=== PATIENT | male | born 1965 ===

== ENCOUNTER 2021-11-18 00:44 | Inpatient (IN) ==
--- NOTE | 2021-11-18 11:23 | Internal Med History&Physical ---
HPI History of Present Illness Patient information: Note initiated : 11/18/21 at 11:12 am Service Date, if different from initiated Date: [] Patient: Joshua Woods a 55 y/o M admitted on 11/18/21 for Osteomyelitis. Chief Complaint: [] Chief complaint: left ankle wound with pain History of present illness: Mr. Woods is a 55 year old M history of type 2 diabetes mellitus, presenting with 6 weeks history of swelling, pain, and skin breakdown of his left medial malleolus. There was no prior similar data. Patient had an injury by welding about 6 weeks ago to his left medial ankle. Since then, his left medial ankle w ound has been getting worse in terms of erythema, skin breakdown, swelling, pain. The pain currently is graded at 4 out of 10, deep and dull, intermittent, nonradiating. He denies any systemic symptoms such as fever, chills, diaphoresis, change in appetite, general body weakness. He presented to outside hospital who sent him over to our facility for orthopedic surgery care. Vital signs significant for low-grade fever with T-max 37.8. Labs significant for leukocytosis with WBC 15.6. Blood sugar 303. Corrected serum sodium level 122. Lactic acid 0.8. C-reactive protein elevated to 19.9. MRI of the left ankle showing left medial malleolus osteomyelitis. Constitutional Constitutional: Absent chills, excessive sweating, fatigue, fever(s) or weakness EENT Eyes: Absent blurry vision, change in vision, loss of vision or other visual disturbances Ears: Absent decreased hearing or tinnitus Nose, mouth and throat: Absent abnormal hearing, dry mouth, headache(s), nasal congestion or sore throat Cardiovascular Cardiovascular: Absent chest pain, chest pain at rest, edema, irregular heart rhythm or palpatations Respiratory Respiratory: Absent cough, dyspnea or wheezing Gastrointestinal Gastrointestinal: Absent abdominal pain, constipation, diarrhea, nausea or vomiting Musculoskeletal Musculoskeletal: Present joint swelling, myalgias and other; Absent back pain, deformity, limited range of motion, muscle cramps, muscle weakness or numbness Additional comments: Left medial ankle redness, swelling, pain, warmth Integumentary Integumentary: Absent lesions, rash or wounds Neurological Neurological: Absent focal weakness, headache(s) or numbness Psychiatric Psychiatric: Absent anxiety, depression or hallucinations PFSH PFSH All Active Problems (Updated 11/18/21 @ 11:18 by Hermelindo Hill MD) Anemia, normocytic normochromic (Acute) Hyponatremia (Acute) T2DM (type 2 diabetes mellitus) (Acute) Osteomyelitis of left ankle (Acute) EXAM Constitutional Vitals: Temp Pulse Resp BP Pulse Ox 37.8 C H 86 16 149/84 97 11/18/21 10:46 11/18/21 10:46 11/18/21 10:46 11/18/21 10:46 11/18/21 10:46 General appearance: cooperative and no acute distress Head Head exam: Present atraumatic and normocephalic Eye Eye exam: Present EOMI and PERRL ENT ENT exam: Present mucous membranes moist, normal exam and normal external ear exam Neck Neck exam: Present normal inspection; Absent lymphadenopathy, tenderness or thyromegaly Respiratory Respiratory exam: Absent accessory muscle use, respiratory distress or wheezes Cardiovascular Cardiovascular exam: Present normal rate and rhythm; Absent JVD GI/Abdominal GI/Abdominal exam: Present normal bowel sounds and soft; Absent organomegaly or tenderness Rectal Rectal exam: Present deferred Extremities Exam Extremities exam: Present full ROM, joint swelling, normal capillary refill, tenderness and Foot pink and warm; Absent normal inspection Additional comments: Erythema, warmth, swelling, tenderness to touch of the left medial malleolus with skin break break, with foul smelling Neurological Exam Neurological exam: Present alert, CN II-XII intact and oriented X3; Absent motor sensory deficit Psychiatric Psychiatric exam: Present normal affect and normal mood; Absent anxious or depressed Skin Skin exam: Present dry, erythema and warm; Absent intact Additional comments: Erythema, warmth, swelling, tenderness to touch of the left medial malleolus with skin break break, with foul smelling A/P Assessment and plan (1) Osteomyelitis of left ankle: Status: Acute (2) T2DM (type 2 diabetes mellitus): Status: Acute (3) Hyponatremia: Status: Acute (4) Anemia, normocytic normochromic: Status: Acute Narrative A/P Narrative: Assessment and Plans: 1. Left medial malleolus osteomyelitis: Inpatient med surg Dr. Veliz consulted for surgical management Lactic acid 0.8 CRP 19.9 Procalcitonin Wound culture Intraoperative wound culture Blood culture cbc w/ auto diff in the morning to trend WBC Tylenol PRN fever/mild pain MRSA screening negative-->Zosyn Oxycodone PRN moderate pain Morphine IV PRN severe pain NPO with IV fluid Wound care consult Physical therapy 2. T2DM: HgA1c 12.9 High dose SSI q6hr Accu Chek q6hr Hypoglycemia protocol NPO for now 3. Anemia, normocytic normochromic: cbc w/ auto diff in the morning to trend H/H 4. Hyponatremia: Corrected serum sodium 122 NS@100cc/hr BMP q6hr, goal of correction 10 point/24 hours GI ppx: not currently indicated DVT ppx: SCDs Code status: Full Prognosis: guarded Disposition: inpatient med surg Time Spent With Patient Time: Total time spent is greater than 50% in coordination of care (as documented) at patient's floor/unit and/or counseling patient: Total time spent with greater than 50% in coordination of care (as documented) at patient's floor/unit and/or counseling patient:: 50 - 70 minutes
[2021-11-18] MEDS ORDERED: ACETAMINOPHEN 325 MG TABLET PO PRN (11:48)
[2021-11-18] MEDS ORDERED: DEXTROSE 31 GM ORAL.SUSP PO PRN (11:48)
[2021-11-18] MEDS ORDERED: oxyCODONE HCL 5 MG TABLET PO PRN (11:48)
[2021-11-18] MEDS ORDERED: ZOLPIDEM 5 MG TABLET PO PRN (11:48)
[2021-11-18] MEDS ORDERED: DEXTROSE 50% 50 ML VIAL IV PRN (11:48)
[2021-11-18] MEDS ORDERED: ONDANSETRON 4 MG/2 ML VIAL IV PRN (11:48)
[2021-11-18] MEDS ORDERED: IPRATROPIUM/ALBUTEROL 3 ML AMPUL.NEB NEB PRN (11:48)
[2021-11-18] MEDS ORDERED: morphine 4 MG/ML VIAL IV PRN (11:48)
[2021-11-18] MEDS: 0.9 % SODIUM CHLORIDE 1,000 ML IV SCH (12:19)
[2021-11-18] MEDS: INSULIN LISPRO 1 UNIT/0.01 ML UNIT SQ SCH ×2 (12:27→17:10)
[2021-11-18] MEDS: PIPERACILLIN SODIUM/TAZOBACTAM 3.375 GM in DEXTROSE 5% IN WATER 50 ML IV SCH ×3 (12:32→23:30)
[2021-11-18 13:27] LABS: Blood Urea Nitrogen 7 mg/dL (6-20); Calcium 8.7 mg/dL (8.6-10.4); Carbon Dioxide 20 mmol/L (22-30); Chloride 88 mmol/L (96-108); Glomerular Filtration Rate 98; Glucose 283 mg/dL (70-105)
--- NOTE | 2021-11-18 14:02 | General Surgery Consult Note ---
HPI Data of Consult Consult date: 11/18/21 Requesting physician: Hermelindo Hill Primary Care Provider: Ian Lau Family Provider: CSSSI / Infected full thickness burn LEFT lower medial leg. Symptomatic for >1 month. Failed out patient treatment. LAB RESULTS and IMAGING studies reviewed. 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 [employer]. NON smoker and NON alcoholic. Consult Narrative Patient Information: Note initiated : 11/18/21 at 1:45 pm Service Date, if different from initiated Date: [] Patient: Joshua Woods 55 y/o M admitted on 11/18/21 for Osteomyelitis. Chief Complaint: [] cc:: CC: Hermelindo Hill MD Integumentary Integumentary: Present as per HPI, wounds and other Additional comments: Callosities over tips of toes LEFT foot. Dystrophic ridged fungal and ridged toenails. Neurological Neurological: Present other Additional comments: Diabetes with mainly peripheral / sensory neuropathy Endocrine Additional comments: IDDM. PFSH PFSH All Active Problems Anemia, normocytic normochromic (Acute) Hyponatremia (Acute) T2DM (type 2 diabetes mellitus) (Acute) Osteomyelitis of left ankle (Acute) MEDS/ALLERGIES Home Medications and Allergies Home Medications Medication Instructions Recorded Confirmed Type No Known Home Meds 11/18/21 11/18/21 History Allergies Allergy/AdvReac Type Severity Reaction Status Date / Time No Known Food Allergies Allergy Verified 11/18/21 11:40 Physical Examination Vital Signs Vital signs: Temp Pulse Resp BP Pulse Ox 99.1 F H 86 18 165/83 95 11/18/21 12:00 11/18/21 12:00 11/18/21 12:00 11/18/21 12:00 11/18/21 12:00 Head Head exam IM: Present atraumatic, normal inspection and normocephalic Neck Neck exam: no masses, no lymphadenopathy and no venous distension Cardiovascular Cardiovascular exam IM: Present normal rate and rhythm Respiratory Respiratory exam: normal expansion, normal respiratory effort and clear to auscultation Abdomen Abdomen: Present soft, non tender and bowel sounds Integumentary Integumentary: Present other (Circular full thickness wound (Stage 4, Exposed tendon ) with periwound warmth, edema, erythema, cellulitis purulent draiange. Extends to lower 1/3 leg. 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 ) Neurologic Neurologic: Present other (Perpheral neuropathy, Full range of movements of foot and ankle. ) Musculoskeletal Musculoskeletal: Present other (Acute osteomyelitis of LEFT lwoer medial leg bu rn site ( Medial malleolus ) ) Psychiatric Psychiatric: Present oriented to time, oriented to person, oriented to place, speech is normal and memory intact Results Labs Result diagrams: 11/18/21 12: Labs: Abnormal lab results 11/18/21 11/18/21 11/18/21 Range/Units 12: 12: 12:27 Sodium 123 L (133-145) mmol/L Chloride 88 L (96-108) mmol/L Carbon Dioxide 20 L (22-30) mmol/L Glucose 283 H (70-105) mg/dL Hemoglobin A1c 12.0 H (4.0-6.0) % Hgb Procalcitonin 0.16 H (<0.10) ng/mL Diabetes panel 11/18/21 11/18/21 Range/Units 12: 12:27 Sodium 123 L (133-145) mmol/L Potassium 3.9 (3.3-5.1) mmol/L Chloride 88 L (96-108) mmol/L Carbon Dioxide 20 L (22-30) mmol/L BUN 7 (6-20) mg/dL Creatinine 0.8 (0.7-1.2) mg/dL Glucose 283 H (70-105) mg/dL Hemoglobin A1c 12.0 H (4.0-6.0) % Hgb Calcium 8.7 (8.6-10.4) mg/dL Calcium panel 11/18/21 Range/Units 12:27 Calcium 8.7 (8.6-10.4) mg/dL Pituitary panel 11/18/21 Range/Units 12:27 Sodium 123 L (133-145) mmol/L Potassium 3.9 (3.3-5.1) mmol/L Chloride 88 L (96-108) mmol/L Carbon Dioxide 20 L (22-30) mmol/L BUN 7 (6-20) mg/dL Creatinine 0.8 (0.7-1.2) mg/dL Glucose 283 H (70-105) mg/dL Calcium 8.7 (8.6-10.4) mg/dL Adrenal panel 11/18/21 Range/Units 12:27 Sodium 123 L (133-145) mmol/L Potassium 3.9 (3.3-5.1) mmol/L Chloride 88 L (96-108) mmol/L Carbon Dioxide 20 L (22-30) mmol/L BUN 7 (6-20) mg/dL Creatinine 0.8 (0.7-1.2) mg/dL Glucose 283 H (70-105) mg/dL Calcium 8.7 (8.6-10.4) mg/dL All other labs normal. A/P Time Spent With Patient Time: Assessment: Requested by Dr. Jcarlos KINCAID, to see this patient for wound care. Debridement and ongoing wound management. Chronic sepsis. CSSSI Infected full thickness 3rd degree burn LEFT lower medial leg. Leucocytosis, ELEVATED A1C, CRP, PROCALCITONIN. Onychomycosis IDDM Peripheral neuropathy PLAN: Continue current treatment. IV antibiotics. Will schedule OR surgical debridement and tissue c/s. Further recommendations later. Total time spent is greater than 50% in coordination of care (as documented) at patient's floor/unit and/or counseling patient: Total time spent with greater than 50% in coordination of care (as documented) at patient's floor/unit and/or counseling patient:: 35 - 50 minutes
--- NOTE | 2021-11-18 14:03 | General Surgery Consult Note ---
HPI Data of Consult Primary Care Provider: Ian Lau Consult Narrative Patient Information: Note initiated : 11/18/21 at 2:02 pm Service Date, if different from initiated Date: [] Patient: Joshua Woods 55 y/o M admitted on 11/18/21 for Osteomyelitis. Chief Complaint: [] cc:: CC: Hermelindo Hill MD [facility] PFS All Active Problems Anemia, normocytic normochromic (Acute) Hyponatremia (Acute) T2DM (type 2 diabetes mellitus) (Acute) Osteomyelitis of left ankle (Acute) MEDS/ALLERGIES Home Medications and Allergies Home Medications Medication Instructions Recorded Confirmed Type No Known Home Meds 11/18/21 11/18/21 History Allergies Allergy/AdvReac Type Severity Reaction Status Date / Time No Known Food Allergies Allergy Verified 11/18/21 11:40 Physical Examination Vital Signs Vital signs: Temp Pulse Resp BP Pulse Ox 99.1 F H 86 18 165/83 95 11/18/21 12:00 11/18/21 12:00 11/18/21 12:00 11/18/21 12:00 11/18/21 12:00 Results Labs Result diagrams: 11/18/21 12:27 Labs: Abnormal lab results 11/18/21 11/18/21 11/18/21 Range/Units 12:02 12:26 12:27 Sodium 123 L (133-145) mmol/L Chloride 88 L (96-108) mmol/L Carbon Dioxide 20 L (22-30) mmol/L Glucose 283 H (70-105) mg/dL Hemoglobin A1c 12.0 H (4.0-6.0) % Hgb Procalcitonin 0.16 H (<0.10) ng/mL Diabetes panel 11/18/21 11/18/21 Range/Units 12:26 12:27 Sodium 123 L (133-145) mmol/L Potassium 3.9 (3.3-5.1) mmol/L Chloride 88 L (96-108) mmol/L Carbon Dioxide 20 L (22-30) mmol/L BUN 7 (6-20) mg/dL Creatinine 0.8 (0.7-1.2) mg/dL Glucose 283 H (70-105) mg/dL Hemoglobin A1c 12.0 H (4.0-6.0) % Hgb Calcium 8.7 (8.6-10.4) mg/dL Calcium panel 11/18/21 Range/Units 12:27 Calcium 8.7 (8.6-10.4) mg/dL Pituitary panel 11/18/21 Range/Units 12:27 Sodium 123 L (133-145) mmol/L Potassium 3.9 (3.3-5.1) mmol/L Chloride 88 L (96-108) mmol/L Carbon Dioxide 20 L (22-30) mmol/L BUN 7 (6-20) mg/dL Creatinine 0.8 (0.7-1.2) mg/dL Glucose 283 H (70-105) mg/dL Calcium 8.7 (8.6-10.4) mg/dL Adrenal panel 11/18/21 Range/Units 12:27 Sodium 123 L (133-145) mmol/L Potassium 3.9 (3.3-5.1) mmol/L Chloride 88 L (96-108) mmol/L Carbon Dioxide 20 L (22-30) mmol/L BUN 7 (6-20) mg/dL Creatinine 0.8 (0.7-1.2) mg/dL Glucose 283 H (70-105) mg/dL Calcium 8.7 (8.6-10.4) mg/dL All other labs normal. A/P Time Spent With Patient Time: Total time spent is greater than 50% in coordination of care (as documented) at patient's floor/unit and/or counseling patient:
[2021-11-18] MEDS: 0.9 % SODIUM CHLORIDE 10 ML SYRINGE IV SCH ×2 (14:26→22:03)
[2021-11-18 18:58] LABS: Blood Urea Nitrogen 6 mg/dL (6-20); Calcium 8.5 mg/dL (8.6-10.4); Carbon Dioxide 24 mmol/L (22-30); Chloride 92 mmol/L (96-108); Glomerular Filtration Rate 104; Glucose 162 mg/dL (70-105)
[2021-11-18] MEDS: SENNOSIDES 1 TABLET PO SCH (20:35)
[2021-11-18] MEDS: DOCUSATE SODIUM 100 MG CAPSULE PO SCH (20:35)
[2021-11-19] MEDS: INSULIN LISPRO 1 UNIT/0.01 ML UNIT SQ SCH ×5 (00:40→20:15)
[2021-11-19] MEDS: 0.9 % SODIUM CHLORIDE 1,000 ML IV SCH ×3 (00:41→21:15)
[2021-11-19 02:01] LABS: Blood Urea Nitrogen 5 mg/dL (6-20); Calcium 8.4 mg/dL (8.6-10.4); Carbon Dioxide 28 mmol/L (22-30); Chloride 93 mmol/L (96-108); Glomerular Filtration Rate 98; Glucose 144 mg/dL (70-105)
[2021-11-19] MEDS: PIPERACILLIN SODIUM/TAZOBACTAM 3.375 GM in DEXTROSE 5% IN WATER 50 ML IV SCH ×4 (04:59→23:54)
[2021-11-19] MEDS: 0.9 % SODIUM CHLORIDE 10 ML SYRINGE IV SCH ×4 (04:59→20:15)
[2021-11-19 06:28] LABS: Basophils # (Auto) 0.11 K/mcL (0.00-0.30); Basophils % (Auto) 0.8 % (0.0-2.0); Eosinophils # (Auto) 0.31 K/mcL (0.00-0.70); Eosinophils % (Auto) 2.3 % (0.0-7.0); Hematocrit 28.3 % (40.1-51.0); Hemoglobin 9.4 g/dL (13.7-17.5); Lymphocytes # (Auto) 1.77 K/mcL (1.50-4.80); Lymphocytes % (Auto) 13.2 % (15.5-49.0); Mean Cell Volume 84.2 fL (80.0-100.0); Mean Corpuscular HGB Conc 33.2 g/dL (31.0-36.0); Mean Platelet Volume 9.5 fL (7.4-10.4); Monocytes # (Auto) 1.24 K/mcL (0.10-0.90); Monocytes % (Auto) 9.2 % (1.0-12.0); Neutrophils % (Auto) 74.5 % (38.0-78.0); Platelet Count 561 K/mcL (140-440); RBC 3.36 M/mcL (4.63-6.08); Red Cell Distribution Width 12.6 % (11.5-14.5); WBC 13.4 K/mcL (4.5-11.0)
--- NOTE | 2021-11-19 07:33 | EKG ---
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
[2021-11-19] MEDS: DOCUSATE SODIUM 100 MG CAPSULE PO SCH ×2 (08:38→20:15)
--- NOTE | 2021-11-19 09:05 | XRay Report ---
HISTORY: Cough, preop for treating osteomyelitis FINDINGS: The lungs are clear. The heart, mediastinum, madelaine and pleura are normal. IMPRESSION: Normal chest. Interpreted and Authenticated by: Joshua Hui 11/19/21
[2021-11-19] MEDS ORDERED: cefTRIAXone 1 GM VIAL IV ONE (14:12)
[2021-11-19] MEDS ORDERED: fentaNYL 100 MCG/2 ML VIAL IV ONE (14:13)
[2021-11-19] MEDS ORDERED: KETAMINE 50 MG/ML Syringe (ANEST) IV ONE (14:13)
[2021-11-19] MEDS ORDERED: ONDANSETRON 4 MG/2 ML VIAL ONE (14:13)
[2021-11-19] MEDS ORDERED: LIDOCAINE HCL/PF 100 MG/5 ML SYRINGE IV ONE (14:13)
[2021-11-19] MEDS ORDERED: GENTAMICIN SULFATE 800 MG/20 ML VIAL IR ONE (14:13)
[2021-11-19] MEDS ORDERED: PROPOFOL 200 MG/20 ML VIAL IV ONE (14:13)
[2021-11-19] MEDS ORDERED: DEXAMETHASONE 10 MG/ML VIAL ONE (14:13)
[2021-11-19] MEDS ORDERED: MAGNESIUM SULFATE 2 GM/50 ML BAG IV ONE (14:13)
[2021-11-19] MEDS ORDERED: VANCOMYCIN 1,000 MG in 0.9 % SODIUM CHLORIDE 250 ML IV SCH (14:15)
[2021-11-19] MEDS ORDERED: ACETAMINOPHEN 1,000 MG/100 ML BAG IV ONE (14:40)
[2021-11-19] MEDS ORDERED: IPRATROPIUM/ALBUTEROL 3 ML AMPUL.NEB NEB PRN (14:40)
[2021-11-19] MEDS ORDERED: LACTATED RINGERS 250 ML IV PRN (14:40)
[2021-11-19] MEDS ORDERED: fentaNYL 100 MCG/2 ML VIAL IV PRN (14:40)
[2021-11-19] MEDS ORDERED: ONDANSETRON 4 MG/2 ML VIAL IV PRN (14:40)
[2021-11-19] MEDS ORDERED: NALOXONE HCL 0.4 MG/ML VIAL IV PRN (14:40)
[2021-11-19] MEDS ORDERED: KETOROLAC 30 MG/ML VIAL IV PRN (14:40)
[2021-11-19] MEDS ORDERED: MEPERIDINE 25 MG/ML VIAL IV PRN (14:40)
[2021-11-19] MEDS ORDERED: PROMETHAZINE 25 MG/ML VIAL IV PRN (14:40)
[2021-11-19] MEDS ORDERED: LACTATED RINGERS 1,000 ML IV SCH (14:45)
--- NOTE | 2021-11-19 14:57 | General Surgery Procedure Note ---
Date of procedure: Note initiated : 11/19/21 at 2:54 pm Service Date, if different from initiated Date: [] Pre-op diagnosis: CSSSI, Infected full thickness burn LEFT lower medial leg. Post-op diagnosis: same Procedure: Excisional debridement, pulse lavage irrigation, tissue for c/s and open packing. Findings: Stage 4 wound. Exposed tendon. 5.5 x 4.5 x 1.5 CM Grafts/Implants: NONE Anesthesia: GLMA Surgeon: Rohan Tran Estimated blood loss: 10 Condition: stable Disposition: PACU
[2021-11-19] MEDS ORDERED: ACETAMINOPHEN 325 MG TABLET PO PRN (15:03)
--- NOTE | 2021-11-19 15:51 | Internal Med Progress Note ---
SUBJECTIVE Subjective Patient information: Note initiated : 11/19/21 at 3:45 pm Service Date, if different from initiated Date: [] Patient: Joshua Woods 55 y/o M admitted on 11/18/21 for Osteomyelitis. Chief Complaint: [] Principal diagnosis: L ankle medial malleolus Osteomyelitis, confirmed by MR of Foot Interval history: Mr. Woods is a 55 year old M history of type 2 diabetes mellitus, presenting with 6 weeks history of swelling, pain, and skin breakdown of his left medial malleolus. There was no prior similar data. Patient had an injury by welding about 6 weeks ago to his left medial ankle. Since then, his left medial ankle wound has been getting worse in terms of erythema, skin breakdown, swelling, sohan n. The pain currently is graded at 4 out of 10, deep and dull, intermittent, nonradiating. He denies any systemic symptoms such as fever, chills, diaphoresis, change in appetite, general body weakness. He presented to outside hospital who sent him over to our facility for orthopedic surgery care. Vital signs significant for low-grade fever with T-max 37.8. Labs significant for leukocytosis with WBC 15.6. Blood sugar 303. Corrected serum sodium level 122. Lactic acid 0.8. C-reactive protein elevated to 19.9. MRI of the left ankle showing left medial malleolus osteomyelitis. \ 11/19- No new sx. Comfortable. Awaiting OR for wound debridement today. Discussed with post OR. He washed out the wound and cx have been sent to the lab. NWB of L foot for a few days. Constitutional Vitals: Vital Signs Temp Pulse Resp BP Pulse Ox 99.6 F H 73 13 129/99 95 11/19/21 15:28 11/19/21 15:28 11/19/21 15:28 11/19/21 15:26 11/19/21 15:28 Period Temp Pulse Resp BP Sys/Randolph Pulse Ox Last 24 Hr 99 F-100.9 F 65-91 12-24 95-153/53-99 93-100 Intake and Output 11/19/21 11/19/21 11/19/21 05:59 13:59 21:59 Intake Total 1900 1050 1150 Output Total 15 Balance 1900 1050 1135 Weight 65.317 kg Patient Weight 11/20/21 05:59 Weight 65.317 kg Intake & Output: Intake & Output 11/19/21 11/19/21 11/19/21 05:59 13:59 21:59 Intake Total 1900 1050 1150 Output Total 15 Balance 1900 1050 1135 Weight 65.317 kg Intake: IV 1100 1050 350 Sodium Chloride 0.9% 1,000 ml @ 1000 1000 100 mls/hr IV .Q10H MARY Rx#: [id number] Zosyn 3.375 gm In Dextrose 5% 100 50 in Water 50 ml @ 100 mls/hr IV Q6H MARY Rx#:[id number] Vancomycin 1,000 mg In Sodium 250 Chloride 0.9% 250 ml @ 250 mls/ hr IV PREOP MARY Rx#:[id number] Oral 800 IV - Manual Only 800 Output: Estimated Blood Loss 15 Other: # Voids 2 General appearance: average body habitus, cooperative and no acute distress Head Head exam: Present atraumatic and normocephalic Eye Eye exam: Present normal appearance Respiratory Respiratory exam: Present normal respiratory exam and CTAB; Absent accessory muscle use, decreased breath sounds or respiratory distress Cardiovascular Cardiovascular exam: Present normal rate and rhythm and RRR; Absent bradycardia, gallop, systolic murmur or tachycardia GI/Abdominal GI/Abdominal exam: Present soft Neurological Exam Neurological exam: Present alert and oriented X3; Absent altered or motor sensory deficit OBJ DATA Labs CBC & Chem 7: 11/19/21 05:14 11/18/21 17:57 Labs: Abnormal Lab Results 11/19/21 11/18/21 11/18/21 05:14 17:57 12:27 WBC 13.4 H RBC 3.36 L Hgb 9.4 L Hct 28.3 L Plt Count 561 H Lymph % (Auto) 13.2 L Orange # (Auto) 1.24 H Absolute Neutrophils 10.00 H Sodium 130 L 123 L Potassium Chloride 92 L 88 L Carbon Dioxide 20 L Anion Gap BUN Glucose 162 H 283 H Hemoglobin A1c Calcium 8.5 L Procalcitonin 11/18/21 11/18/21 11/18/21 12:26 12:02 01:07 WBC RBC Hgb Hct Plt Count Lymph % (Auto) Orange # (Auto) Absolute Neutrophils Sodium 128 L Potassium 3.1 L Chloride 93 L Carbon Dioxide Anion Gap 7.0 L BUN 5 L Glucose 144 H Hemoglobin A1c 12.0 H Calcium 8.4 L Procalcitonin 0.16 H Meds: Medications Acetaminophen (Acetaminophen 325 Mg Tablet) 650 mg PO Q6HP PRN; Protocol PRN Reason: Per Pain Protocol/Fever > 101 Last Admin: 11/18/21 20:34 Dose: 650 mg Documented by: Albuterol/Ipratropium (Ipratropium/Albuterol 3 Ml Ampul.Neb) 3 ml NEB Q4HRT PRN PRN Reason: Wheezing Dextrose (Dextrose 50% 50 Ml Vial) 0 ml IV UD PRN PRN Reason: Per Sliding Scale Diagnostic Test (Pha) (Accu-Chek 1 Each Strip) 1 each FS Q6H [facility] Last Admin: 11/19/21 15:23 Dose: 1 each Documented by: Docusate Sodium (Docusate Sodium 100 Mg Capsule) 100 mg PO BID [facility] Last Admin: 11/19/21 08:38 Dose: Not Given Documented by: Glucose (Dextrose 31 Gm Oral.Susp) 15 gm PO PRN PRN PRN Reason: Hypoglycemia Sodium Chloride (Sodium Chloride 0.9%) 1,000 mls @ 100 mls/hr IV .Q10H [facility] Last Infusion: 11/19/21 13:15 Dose: Infused Documented by: Piperacillin Sod/Tazobactam (Sod 3.375 gm/ Dextrose) 50 mls @ 100 mls/hr IV Q6H [facility]; Protocol Last Infusion: 11/19/21 12:35 Dose: Infused Documented by: Sodium Chloride (Sodium Chloride 0.9%) 1,000 mls @ 75 mls/hr IV .[id number] [facility] Insulin Human Lispro (Insulin Lispro 1 Unit/0.01 Ml Unit) 0 unit SQ Q6 [facility]; Protocol Last Admin: 11/19/21 11:52 Dose: 9 unit Documented by: Morphine Sulfate (Morphine 4 Mg/Ml Vial) 4 mg IV Q4HP PRN; Protocol PRN Reason: Per Pain Protocol Ondansetron HCl (Ondansetron 4 Mg/2 Ml Vial) 4 mg IV Q6HP PRN PRN Reason: Nausea And Vomiting Oxycodone HCl (Oxycodone Hcl 5 Mg Tablet) 5 mg PO Q4HP PRN; Protocol PRN Reason: Per Pain Protocol Senna (Sennosides 1 Tablet) 2 tab PO HS [facility] Last Admin: 11/18/21 20:35 Dose: Not Given Documented by: Sodium Chloride (0.9 % Sodium Chloride 10 Ml Syringe) 10 ml IV Q8 [facility]ARY Last Admin: 11/19/21 15:14 Dose: Not Given Documented by: Sodium Chloride (0.9 % Sodium Chloride 10 Ml Syringe) 10 ml IV Q8 [facility]ARY Zolpidem Tartrate (Zolpidem 5 Mg Tablet) 5 mg PO HSP PRN PRN Reason: Insomnia A/P Narrative A/P Narrative: 1. Left medial malleolus osteomyelitis: Lactic acid 0.8 CRP 19.9 Procalcitonin 0.16 Wound culture Intraoperative wound culture sent today He underwent Excisional debridement, pulse lavage irrigation, tissue for c/s and open packing on 11/19/2021 Blood culture drawn, awaiting final result cbc w/ auto diff in the morning to trend WBC Tylenol PRN fever/mild pain MRSA screening negative-->Zosyn Oxycodone PRN moderate pain Morphine IV PRN severe pain Wound care consult Physical therapy 2. T2DM: HgA1c 12.0 this admit High dose SSI q6hr Accu Chek q6hr Hypoglycemia protocol consistent carb diet 3. Anemia, normocytic normochromic: cbc w/ auto diff in the morning to trend H/H 4. Hyponatremia: Corrected serum sodium 122, slowly corrected to 130. NS@100cc/hr- stopped. GI ppx: not currently indicated DVT ppx: SCDs Code status: Full Prognosis: guarded Disposition: inpatient med surg Time Spent With Patient Time: Total time spent is greater than 50% in coordination of care (as documented) at patient's floor/unit and/or counseling patient: Total time spent with greater than 50% in coordination of care (as documented) at patient's floor/unit and/or counseling patient:: 25 - 35 minutes
[2021-11-19] MEDS: SENNOSIDES 1 TABLET PO SCH (20:15)
[2021-11-19] MEDS ORDERED: INSULIN LISPRO 1 UNIT/0.01 ML UNIT SQ ONE (20:17)
[2021-11-20] MEDS: PIPERACILLIN SODIUM/TAZOBACTAM 3.375 GM in DEXTROSE 5% IN WATER 50 ML IV SCH ×4 (05:25→23:57)
[2021-11-20] MEDS: 0.9 % SODIUM CHLORIDE 10 ML SYRINGE IV SCH ×5 (05:25→20:31)
[2021-11-20 06:19] LABS: Basophils # (Auto) 0.02 K/mcL (0.00-0.30); Basophils % (Auto) 0.1 % (0.0-2.0); Eosinophils # (Auto) 0 K/mcL (0.00-0.70); Eosinophils % (Auto) 0 % (0.0-7.0); Hematocrit 31.7 % (40.1-51.0); Hemoglobin 10.3 g/dL (13.7-17.5); Lymphocytes # (Auto) 0.81 K/mcL (1.50-4.80); Lymphocytes % (Auto) 5.2 % (15.5-49.0); Mean Corpuscular HGB Conc 32.5 g/dL (31.0-36.0); Mean Platelet Volume 9.8 fL (7.4-10.4); Monocytes # (Auto) 0.39 K/mcL (0.10-0.90); Monocytes % (Auto) 2.5 % (1.0-12.0); Neutrophils % (Auto) 92.2 % (38.0-78.0); Platelet Count 622 K/mcL (140-440); RBC 3.73 M/mcL (4.63-6.08); Red Cell Distribution Width 12.7 % (11.5-14.5); WBC 15.6 K/mcL (4.5-11.0)
[2021-11-20 06:44] LABS: Blood Urea Nitrogen 11 mg/dL (6-20); Calcium 8.6 mg/dL (8.6-10.4); Carbon Dioxide 22 mmol/L (22-30); Chloride 92 mmol/L (96-108); Glomerular Filtration Rate 98; Glucose 299 mg/dL (70-105)
[2021-11-20] MEDS: 0.9 % SODIUM CHLORIDE 1,000 ML IV SCH ×2 (07:03→20:31)
[2021-11-20] MEDS: INSULIN LISPRO 1 UNIT/0.01 ML UNIT SQ SCH ×4 (08:08→20:32)
[2021-11-20] MEDS: DOCUSATE SODIUM 100 MG CAPSULE PO SCH ×2 (08:10→20:30)
--- NOTE | 2021-11-20 11:46 | Internal Med Progress Note ---
SUBJECTIVE Subjective Patient information: Note initiated : 11/20/21 at 11:43 am Service Date, if different from initiated Date: [] Patient: Joshua Woods 55 y/o M admitted on 11/18/21 for Osteomyelitis. Chief Complaint: [] Principal diagnosis: L ankle medial malleolus Osteomyelitis, confirmed by MR of Foot Interval history: renate Woods is a 55 year old M history of type 2 diabetes mellitus, presenting with 6 weeks history of swelling, pain, and skin breakdown of his left medial malleolus. There was no prior similar data. Patient had an injury by welding about 6 weeks ago to his left medial ankle. Since then, his left medial ankle wound has been getting worse in terms of erythema, skin breakdown, swelling, sohan n. The pain currently is graded at 4 out of 10, deep and dull, intermittent, nonradiating. He denies any systemic symptoms such as fever, chills, diaphoresis, change in appetite, general body weakness. He presented to outside hospital who sent him over to our facility for orthopedic surgery care. Vital signs significant for low-grade fever with T-max 37.8. Labs significant for leukocytosis with WBC 15.6. Blood sugar 303. Corrected serum sodium level 122. Lactic acid 0.8. C-reactive protein elevated to 19.9. MRI of the left ankle showing left medial malleolus osteomyelitis. \ 11/19- No new sx. Comfortable. Awaiting OR for wound debridement today. Discussed with post OR. He washed out the wound and cx have been sent to the lab. NWB of L foot for a few days. 11/20-no new symptoms. Comfortable. Vital signs stable. Afebrile. Blood sugars are elevated. Constitutional Vitals: Vital Signs Temp Pulse Resp BP Pulse Ox 97.9 F 77 18 120/72 97 11/20/21 11:19 11/20/21 11:19 11/20/21 11:19 11/20/21 11:19 11/20/21 11:19 Period Temp Pulse Resp BP Sys/Randolph Pulse Ox Last 24 Hr 97.7 F-99.6 F 65-83 12-24 95-138/53-99 93-100 Intake and Output 11/19/21 11/20/21 11/20/21 21:59 05:59 13:59 Intake Total 8755 109 4310 Output Total 15 800 Balance 1425 50 1480 Weight 71.758 kg Intake & Output: Intake & Output 11/19/21 11/20/21 11/20/21 21:59 05:59 13:59 Intake Total 3723 414 1300 Output Total 15 800 Balance 1425 50 1480 Weight 71.758 kg Intake: IV 414 39 2897 Sodium Chloride 0.9% 1,000 ml @ 1000 75 mls/hr IV .[id number] MARY Rx#: [id number] Zosyn 3.375 gm In Dextrose 5% 50 50 in Water 50 ml @ 100 mls/hr IV Q6H MARY Rx#:[id number] Vancomycin 1,000 mg In Sodium 250 Chloride 0.9% 250 ml @ 250 mls/ hr IV PREOP MARY Rx#:[id number] Oral 240 800 480 IV - Manual Only 800 Output: Void Amount 800 Estimated Blood Loss 15 Other: Meal Dinner Breakfast Percent of Meal Consumed 100% 100% Feeding Ability Independent Urine Appearance Clear Urine Color Dark Keyanna Urine Odor Normal General appearance: average body habitus, cooperative and no acute distress Head Head exam: Present atraumatic and normocephalic Eye Eye exam: Present normal appearance Respiratory Respiratory exam: Present normal respiratory exam and CTAB; Absent accessory muscle use, decreased breath sounds or respiratory distress Cardiovascular Cardiovascular exam: Present normal rate and rhythm and RRR; Absent bradycardia, gallop, systolic murmur or tachycardia GI/Abdominal GI/Abdominal exam: Present soft Neurological Exam Neurological exam: Present alert and oriented X3; Absent altered or motor sensory deficit Additional findings Additional findings: Left foot wrapped in [place] compression wrap. Surrounding skin is still warm to touch. OBJ DATA Labs CBC & Chem 7: 11/20/21 05:30 11/20/21 05:30 Labs: Abnormal Lab Results 11/20/21 11/20/21 11/19/21 05:30 05:30 05:14 WBC 15.6 H 13.4 H RBC 3.73 L 3.36 L Hgb 10.3 L 9.4 L Hct 31.7 L 28.3 L Plt Count 622 H 561 H Neut % (Auto) 92.2 H Lymph % (Auto) 5.2 L 13.2 L Lymph # (Auto) 0.81 L [place] # (Auto) 1.24 H Absolute Neutrophils 14.37 H 10.00 H Sodium 128 L Potassium Chloride 92 L Carbon Dioxide Anion Gap BUN Glucose 299 H Hemoglobin A1c Calcium C-Reactive Protein 20.90 H Procalcitonin 11/18/21 11/18/21 11/18/21 17:57 12:27 12:26 WBC RBC Hgb Hct Plt Count Neut % (Auto) Lymph % (Auto) Lymph # (Auto) [place] # (Auto) Absolute Neutrophils Sodium 130 L 123 L Potassium Chloride 92 L 88 L Carbon Dioxide 20 L Anion Gap BUN Glucose 162 H 283 H Hemoglobin A1c 12.0 H Calcium 8.5 L C-Reactive Protein Procalcitonin 11/18/21 11/18/21 12:02 01:07 WBC RBC Hgb Hct Plt Count Neut % (Auto) Lymph % (Auto) Lymph # (Auto) [place] # (Auto) Absolute Neutrophils Sodium 128 L Potassium 3.1 L Chloride 93 L Carbon Dioxide Anion Gap 7.0 L BUN 5 L Glucose 144 H Hemoglobin A1c Calcium 8.4 L C-Reactive Protein Procalcitonin 0.16 H Meds: Medications Acetaminophen (Acetaminophen 325 Mg Tablet) 650 mg PO Q6HP PRN; Protocol PRN Reason: Per Pain Protocol/Fever > 101 Last Admin: 11/18/21 20:34 Dose: 650 mg Documented by: Albuterol/Ipratropium (Ipratropium/Albuterol 3 Ml Ampul.Neb) 3 ml NEB Q4HRT PRN PRN Reason: Wheezing Dextrose (Dextrose 50% 50 Ml Vial) 0 ml IV UD PRN PRN Reason: Per Sliding Scale Diagnostic Test (Pha) (Accu-Chek 1 Each Strip) 1 each FS ACHS [facility] Last Admin: 11/20/21 11:22 Dose: 1 each Documented by: Docusate Sodium (Docusate Sodium 100 Mg Capsule) 100 mg PO BID [facility] Last Admin: 11/20/21 08:10 Dose: Not Given Documented by: Glucose (Dextrose 31 Gm Oral.Susp) 15 gm PO PRN PRN PRN Reason: Hypoglycemia Piperacillin Sod/Tazobactam (Sod 3.375 gm/ Dextrose) 50 mls @ 100 mls/hr IV Q6H [facility]; Protocol Last Admin: 11/20/21 05:25 Dose: 100 mls/hr Documented by: Sodium Chloride (Sodium Chloride 0.9%) 1,000 mls @ 75 mls/hr IV .[id number] [facility] Last Admin: 11/20/21 07:03 Dose: 75 mls/hr Documented by: Insulin Human Lispro (Insulin Lispro 1 Unit/0.01 Ml Unit) 0 unit SQ [facility]; Protocol Last Admin: 11/20/21 08:08 Dose: 15 units Documented by: Morphine Sulfate (Morphine 4 Mg/Ml Vial) 4 mg IV Q4HP PRN; Protocol PRN Reason: Per Pain Protocol Ondansetron HCl (Ondansetron 4 Mg/2 Ml Vial) 4 mg IV Q6HP PRN PRN Reason: Nausea And Vomiting Oxycodone HCl (Oxycodone Hcl 5 Mg Tablet) 5 mg PO Q4HP PRN; Protocol PRN Reason: Per Pain Protocol Last Admin: 11/19/21 20:15 Dose: 5 mg Documented by: Senna (Sennosides 1 Tablet) 2 tab PO HS [facility] Last Admin: 11/19/21 20:15 Dose: 2 tab Documented by: Sodium Chloride (0.9 % Sodium Chloride 10 Ml Syringe) 10 ml IV Q8 [facility] Last Admin: 11/20/21 05:25 Dose: 10 ml Documented by: Sodium Chloride (0.9 % Sodium Chloride 10 Ml Syringe) 10 ml IV Q8 [facility] Last Admin: 11/20/21 08:11 Dose: Not Given Documented by: Zolpidem Tartrate (Zolpidem 5 Mg Tablet) 5 mg PO HSP PRN PRN Reason: Insomnia A/P Narrative A/P Narrative: 1. Left medial malleolus osteomyelitis: Lactic acid 0.8 CRP 19.9 Procalcitonin 0.16 Wound culture-growing group C strep. Should be well covered by Zosyn. He underwent Excisional debridement, pulse lavage irrigation, tissue for c/s and open packing on 11/19/2021 Blood culture drawn, no growth to date. cbc w/ auto diff in the morning to trend WBC Tylenol PRN fever/mild pain MRSA screening negative Oxycodone PRN moderate pain Morphine IV PRN severe pain Wound care consult Physical therapy-nonweightbearing on left foot. 2. T2DM: HgA1c 12.0 this admit. Insulin analy. He knew he had diabetes mellitus but was trying to control with diet modification. Lantus 15 units daily and aspart 5 units 3 times a day before meals along with sliding scale insulin. He will need to go home on insulin therapy. He explained issues with cost. I can switch him to twice daily-insulin 70/30 at the time of discharge which should be affordable. I educated him about sticking with vegetables, lean meat and avoiding carbohydrates. Hypoglycemia protocol consistent carb diet 3. Anemia, normocytic normochromic: cbc w/ auto diff in the morning to trend H/H 4. Hyponatremia: Corrected serum sodium 122, slowly corrected to 130. NS@100cc/hr- stopped. GI ppx: not currently indicated DVT ppx: SCDs Code status: Full Prognosis: guarded Disposition: inpatient med surg Time Spent With Patient Time: Total time spent is greater than 50% in coordination of care (as documented) at patient's floor/unit and/or counseling patient:
[2021-11-20] MEDS: INSULIN GLARGINE, HUMAN 1 UNIT/0.01 ML SQ SCH (13:10)
[2021-11-20] MEDS ORDERED: INSULIN LISPRO 1 UNIT/0.01 ML UNIT SQ SCH (17:00)
--- NOTE | 2021-11-20 17:35 | General Surgery Progress Note ---
SUBJECTIVE Subjective Patient information: Note initiated : 11/20/21 at 5:26 pm Service Date, if different from initiated Date: [] Patient: Joshua Woods 55 y/o M admitted on 11/18/21 for Osteomyelitis. Chief Complaint: [] Principal diagnosis: L ankle medial malleolus Osteomyelitis, confirmed by MR of Foot Additional PMFSH (Level 3 Only): POD # 1. Patient seen along with nurse and his spouse. Progress reviewed with Dr. Hager, Hospitalist Physician. Constitutional Vitals: Vital Signs Temp Pulse Resp BP Pulse Ox 98.1 F 71 16 129/75 98 11/20/21 16:00 11/20/21 16:00 11/20/21 16:00 11/20/21 16:00 11/20/21 16:00 Period Temp Pulse Resp BP Sys/Randolph Pulse Ox Last 24 Hr 97.7 F-98.3 F 71-79 14-18 111-138/68-84 97-98 Intake and Output 11/20/21 11/20/21 11/20/21 05:59 13:59 21:59 Intake Total 850 1530 290 Output Total 800 Balance 50 1530 290 Intake & Output: Intake & Output 11/20/21 11/20/21 11/20/21 05:59 13:59 21:59 Intake Total 850 1530 290 Output Total 800 Balance 50 1530 290 Intake: IV 50 1050 50 Sodium Chloride 0.9% 1,000 ml @ 1000 75 mls/hr IV .[id number] MARY Rx#: [id number] Zosyn 3.375 gm In Dextrose 5% 50 50 50 in Water 50 ml @ 100 mls/hr IV Q6H MARY Rx#:[id number] Oral 800 480 240 Output: Void Amount 800 Other: Meal Dinner Breakfast Percent of Meal Consumed 100% 100% Feeding Ability Independent Urine Appearance Clear Urine Color Dark [place] Urine Odor Normal Exam: AVSS. VSS. LEFT foot and ankle FROM Dressings CDI. Labs reviewed. Final c/s sensitivities pending. A/P Narrative A/P Narrative: Assessment: Satisfactory progress. Plan of Treatment: Plan: Continue present management. Dressing change On 11/22/2021. Further recommendations later. Thanks. Time Spent With Patient Time: Total time spent is greater than 50% in coordination of care (as documented) at patient's floor/unit and/or counseling patient: Total time spent with greater than 50% in coordination of care (as documented) at patient's floor/unit and/or counseling patient:: 15 - 24 minutes
[2021-11-20] MEDS: SENNOSIDES 1 TABLET PO SCH (20:21)
[2021-11-21] MEDS: 0.9 % SODIUM CHLORIDE 10 ML SYRINGE IV SCH ×3 (04:25→21:11)
[2021-11-21] MEDS: PIPERACILLIN SODIUM/TAZOBACTAM 3.375 GM in DEXTROSE 5% IN WATER 50 ML IV SCH ×4 (05:38→23:44)
[2021-11-21 06:10] LABS: Basophils # (Auto) 0.08 K/mcL (0.00-0.30); Basophils % (Auto) 0.6 % (0.0-2.0); Eosinophils # (Auto) 0.19 K/mcL (0.00-0.70); Eosinophils % (Auto) 1.4 % (0.0-7.0); Hematocrit 28.2 % (40.1-51.0); Hemoglobin 9.1 g/dL (13.7-17.5); Lymphocytes # (Auto) 2.91 K/mcL (1.50-4.80); Lymphocytes % (Auto) 20.8 % (15.5-49.0); Mean Cell Volume 84.4 fL (80.0-100.0); Mean Corpuscular HGB Conc 32.3 g/dL (31.0-36.0); Mean Platelet Volume 9.3 fL (7.4-10.4); Monocytes # (Auto) 1.01 K/mcL (0.10-0.90); Monocytes % (Auto) 7.2 % (1.0-12.0); Platelet Count 603 K/mcL (140-440); RBC 3.34 M/mcL (4.63-6.08); Red Cell Distribution Width 12.9 % (11.5-14.5)
[2021-11-21 06:26] LABS: Blood Urea Nitrogen 11 mg/dL (6-20); Calcium 8.2 mg/dL (8.6-10.4); Carbon Dioxide 25 mmol/L (22-30); Chloride 99 mmol/L (96-108); Glomerular Filtration Rate 98; Glucose 147 mg/dL (70-105)
[2021-11-21] MEDS: INSULIN LISPRO 1 UNIT/0.01 ML UNIT SQ SCH ×7 (07:13→21:11)
[2021-11-21] MEDS: 0.9 % SODIUM CHLORIDE 1,000 ML IV SCH ×3 (07:15→21:10)
[2021-11-21] MEDS: INSULIN GLARGINE, HUMAN 1 UNIT/0.01 ML SQ SCH (08:37)
[2021-11-21] MEDS: DOCUSATE SODIUM 100 MG CAPSULE PO SCH ×2 (08:38→21:11)
--- NOTE | 2021-11-21 13:33 | Internal Med Progress Note ---
SUBJECTIVE Subjective Patient information: Note initiated : 11/21/21 at 1:30 pm Service Date, if different from initiated Date: [] Patient: Joshua Woods 55 y/o M admitted on 11/18/21 for Osteomyelitis. Chief Complaint: [] Principal diagnosis: L ankle medial malleolus Osteomyelitis, confirmed by MR of Foot Interval history: renate Woods is a 55 year old M history of type 2 diabetes mellitus, presenting with 6 weeks history of swelling, pain, and skin breakdown of his left medial malleolus. There was no prior similar data. Patient had an injury by welding about 6 weeks ago to his left medial ankle. Since then, his left medial ankle wound has been getting worse in terms of erythema, skin breakdown, swelling, pain. The pain currently is graded at 4 out of 10, deep and dull, intermittent, nonradiating. He denies any systemic symptoms such as fever, chills, diaphoresis, change in appetite, general body weakness. He presented to outside hospital who sent him over to our facility for orthopedic surgery care. Vital signs significant for low-grade fever with T-max 37.8. Labs significant for leukocytosis with WBC 15.6. Blood sugar 303. Corrected serum sodium level 122. Lactic acid 0.8. C-reactive protein elevated to 19.9. MRI of the left ankle showing left medial malleolus osteomyelitis. \ 11/19- No new sx. Comfortable. Awaiting OR for wound debridement today. Discussed with post OR. He washed out the wound and cx have been sent to the lab. NWB of L foot for a few days. 11/20-no new symptoms. Comfortable. Vital signs stable. Afebrile. Blood sugars are elevated. 11/21- Blood sugars much better after initiation of insulin (lantus 15 u q noon and aspart 5 u tid with SSI). No new sx or complaints. Constitutional Vitals: Vital Signs Temp Pulse Resp BP Pulse Ox 98.8 F 77 16 171/88 95 11/21/21 12:00 11/21/21 04:00 11/21/21 12:00 11/21/21 12:00 11/21/21 12:00 Period Temp Pulse Resp BP Sys/Randolph Pulse Ox Last 24 Hr 97.7 F-98.8 F 71-79 16-20 112-171/67-88 93-98 Intake and Output 11/20/21 11/21/21 11/21/21 21:59 05:59 13:59 Intake Total 4473 944 3085 Output Total 1000 Balance 1340 -150 1500 Weight 71.758 kg Intake & Output: Intake & Output 11/20/21 11/21/21 11/21/21 21:59 05:59 13:59 Intake Total 6781 696 7499 Output Total 1000 Balance 1340 -150 1500 Weight 71.758 kg Intake: IV 1100 50 1100 Sodium Chloride 0.9% 1,000 ml @ 1000 1000 75 mls/hr IV .[id number] MARY Rx#: [id number] Zosyn 3.375 gm In Dextrose 5% 100 50 100 in Water 50 ml @ 100 mls/hr IV Q6H MARY Rx#:[id number] Oral 240 800 400 Output: Void Amount 1000 Other: Meal Breakfast Percent of Meal Consumed 100% Urine Appearance Clear Urine Color Pale Stool Size Moderate Stool Color Brown Stool Consistency Soft # Bowel Movements 1 General appearance: average body habitus, cooperative and no acute distress Head Head exam: Present atraumatic and normocephalic Eye Eye exam: Present normal appearance Respiratory Respiratory exam: Present normal respiratory exam and CTAB; Absent accessory muscle use, decreased breath sounds or respiratory distress Cardiovascular Cardiovascular exam: Present normal rate and rhythm and RRR; Absent bradycardia, gallop, systolic murmur or tachycardia GI/Abdominal GI/Abdominal exam: Present soft Neurological Exam Neurological exam: Present alert and oriented X3; Absent altered or motor sensory deficit OBJ DATA Labs CBC & Chem 7: 11/21/21 05:32 11/21/21 05:32 Labs: Abnormal Lab Results 11/21/21 11/21/21 11/20/21 05:32 05:32 05:30 WBC 14.0 H 15.6 H RBC 3.34 L 3.73 L Hgb 9.1 L 10.3 L Hct 28.2 L 31.7 L Plt Count 603 H 622 H Neut % (Auto) 92.2 H Lymph % (Auto) 5.2 L Lymph # (Auto) 0.81 L [place] # (Auto) 1.01 H Absolute Neutrophils 9.77 H 14.37 H Sodium Potassium Chloride Anion Gap BUN Glucose 147 H Calcium 8.2 L C-Reactive Protein 03/11/19/21 11/18/21 05:30 05:14 17:57 WBC 13.4 H RBC 3.36 L Hgb 9.4 L Hct 28.3 L Plt Count 561 H Neut % (Auto) Lymph % (Auto) 13.2 L Lymph # (Auto) [place] # (Auto) 1.24 H Absolute Neutrophils 10.00 H Sodium 128 L 130 L Potassium Chloride 92 L 92 L Anion Gap BUN Glucose 299 H 162 H Calcium 8.5 L C-Reactive Protein 20.90 H 11/18/21 01:07 WBC RBC Hgb Hct Plt Count Neut % (Auto) Lymph % (Auto) Lymph # (Auto) [place] # (Auto) Absolute Neutrophils Sodium 128 L Potassium 3.1 L Chloride 93 L Anion Gap 7.0 L BUN 5 L Glucose 144 H Calcium 8.4 L C-Reactive Protein Meds: Medications Acetaminophen (Acetaminophen 325 Mg Tablet) 650 mg PO Q6HP PRN; Protocol PRN Reason: Per Pain Protocol/Fever > 101 Last Admin: 11/18/21 20:34 Dose: 650 mg Documented by: Albuterol/Ipratropium (Ipratropium/Albuterol 3 Ml Ampul.Neb) 3 ml NEB Q4HRT PRN PRN Reason: Wheezing Dextrose (Dextrose 50% 50 Ml Vial) 0 ml IV UD PRN PRN Reason: Per Sliding Scale Diagnostic Test (Pha) (Accu-Chek 1 Each Strip) 1 each FS ACHS [facility] Last Admin: 11/21/21 11:43 Dose: 1 each Documented by: Docusate Sodium (Docusate Sodium 100 Mg Capsule) 100 mg PO BID [facility] Last Admin: 11/21/21 08:38 Dose: 100 mg Documented by: Glucose (Dextrose 31 Gm Oral.Susp) 15 gm PO PRN PRN PRN Reason: Hypoglycemia Piperacillin Sod/Tazobactam (Sod 3.375 gm/ Dextrose) 50 mls @ 100 mls/hr IV Q6H [facility]; Protocol Last Infusion: 11/21/21 13:08 Dose: Infused Documented by: Sodium Chloride (Sodium Chloride 0.9%) 1,000 mls @ 75 mls/hr IV .[id number] [facility] Last Admin: 11/21/21 10:19 Dose: 75 mls/hr Documented by: Insulin Glargine (Insulin Glargine, Human 1 Unit/0.01 Ml) 15 unit SQ DAILY [facility] Last Admin: 11/21/21 08:37 Dose: 15 units Documented by: Insulin Human Lispro (Insulin Lispro 1 Unit/0.01 Ml Unit) 0 unit SQ ACHS [facility]; Protocol Last Admin: 11/21/21 11:43 Dose: Not Given Documented by: Insulin Human Lispro (Insulin Lispro 1 Unit/0.01 Ml Unit) 5 unit SQ AC [facility] Last Admin: 11/21/21 11:42 Dose: 5 unit Documented by: Morphine Sulfate (Morphine 4 Mg/Ml Vial) 4 mg IV Q4HP PRN; Protocol PRN Reason: Per Pain Protocol Ondansetron HCl (Ondansetron 4 Mg/2 Ml Vial) 4 mg IV Q6HP PRN PRN Reason: Nausea And Vomiting Oxycodone HCl (Oxycodone Hcl 5 Mg Tablet) 5 mg PO Q4HP PRN; Protocol PRN Reason: Per Pain Protocol Last Admin: 11/19/21 20:15 Dose: 5 mg Documented by: Senna (Sennosides 1 Tablet) 2 tab PO HS [facility] Last Admin: 11/20/21 20:21 Dose: Not Given Documented by: Sodium Chloride (0.9 % Sodium Chloride 10 Ml Syringe) 10 ml IV Q8 [facility] Last Admin: 11/21/21 04:25 Dose: Not Given Documented by: Zolpidem Tartrate (Zolpidem 5 Mg Tablet) 5 mg PO HSP PRN PRN Reason: Insomnia A/P Narrative A/P Narrative: 1. Left medial malleolus osteomyelitis: Lactic acid 0.8 CRP 19.9 Procalcitonin 0.16 Wound culture-growing group B strep. Should be well covered by Zosyn. Continue Zosyn He underwent Excisional debridement, pulse lavage irrigation, tissue for c/s and open packing on 11/19/2021 Blood culture drawn, no growth to date. cbc w/ auto diff in the morning to trend WBC Tylenol PRN fever/mild pain MRSA screening negative Oxycodone PRN moderate pain Morphine IV PRN severe pain Wound care consult Physical therapy-nonweightbearing on left foot. 2. T2DM: HgA1c 12.0 this admit. Insulin analy. He knew he had diabetes mellitus but was trying to control with diet modification. Lantus 15 units daily and aspart 5 units 3 times a day before meals along with sliding scale insulin. He will need to go home on insulin therapy. He explained issues with cost. I can switch him to twice daily-insulin 70/30 at the time of discharge which should be affordable. I educated him about sticking with vegetables, lean meat and avoiding carbohydrates. Hypoglycemia protocol consistent carb diet 3. Anemia, normocytic normochromic: cbc w/ auto diff in the morning to trend H/H 4. Hyponatremia: Corrected serum sodium 122, slowly corrected to 130. NS@100cc/hr- stopped. GI ppx: not currently indicated DVT ppx: SCDs Code status: Full Prognosis: guarded Disposition: rehab/ SNF for dressing changes and needs 6 weeks of IV abx, Time Spent With Patient Time: Total time spent is greater than 50% in coordination of care (as documented) at patient's floor/unit and/or counseling patient: Total time spent with greater than 50% in coordination of care (as documented) at patient's floor/unit and/or counseling patient:: 25 - 35 minutes
[2021-11-21] MEDS: SENNOSIDES 1 TABLET PO SCH (21:11)
[2021-11-22] MEDS: 0.9 % SODIUM CHLORIDE 1,000 ML IV SCH ×3 (02:27→17:38)
[2021-11-22] MEDS: 0.9 % SODIUM CHLORIDE 10 ML SYRINGE IV SCH ×3 (05:46→20:57)
[2021-11-22] MEDS: PIPERACILLIN SODIUM/TAZOBACTAM 3.375 GM in DEXTROSE 5% IN WATER 50 ML IV SCH ×3 (05:46→17:37)
[2021-11-22 06:45] LABS: Basophils # (Auto) 0.11 K/mcL (0.00-0.30); Basophils % (Auto) 0.9 % (0.0-2.0); Eosinophils % (Auto) 2.5 % (0.0-7.0); Hemoglobin 9.9 g/dL (13.7-17.5); Lymphocytes # (Auto) 2.26 K/mcL (1.50-4.80); Lymphocytes % (Auto) 18.5 % (15.5-49.0); Mean Cell Volume 85.5 fL (80.0-100.0); Mean Platelet Volume 9.3 fL (7.4-10.4); Neutrophils % (Auto) 69.1 % (38.0-78.0); Platelet Count 651 K/mcL (140-440); RBC 3.51 M/mcL (4.63-6.08); Red Cell Distribution Width 13.2 % (11.5-14.5); WBC 12.2 K/mcL (4.5-11.0)
[2021-11-22 07:00] LABS: Blood Urea Nitrogen 12 mg/dL (6-20); Calcium 8.7 mg/dL (8.6-10.4); Carbon Dioxide 26 mmol/L (22-30); Chloride 102 mmol/L (96-108); Glomerular Filtration Rate 98; Glucose 137 mg/dL (70-105)
[2021-11-22] MEDS: INSULIN LISPRO 1 UNIT/0.01 ML UNIT SQ SCH ×7 (07:26→20:57)
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
[2021-11-22] MEDS: INSULIN GLARGINE, HUMAN 1 UNIT/0.01 ML SQ SCH (08:36)
[2021-11-22] MEDS: DOCUSATE SODIUM 100 MG CAPSULE PO SCH ×2 (08:37→20:56)
--- NOTE | 2021-11-22 13:22 | General Surgery Progress Note ---
SUBJECTIVE Subjective Patient information: Note initiated : 11/22/21 at 1:15 pm Service Date, if different from initiated Date: [] Patient: Joshua Woods 55 y/o M admitted on 11/18/21 for Osteomyelitis. Chief Complaint: [] Principal diagnosis: L ankle medial malleolus Osteomyelitis, confirmed by MR of Foot Additional PMFSH (Level 3 Only): Progressing well. Compliant with instructions. Patient seen with Luis Haq RN, Wound Care Nurse and Dr. Hager. Hospitalist Physician. Constitutional Vitals: Vital Signs Temp Pulse Resp BP Pulse Ox 97.7 F 73 19 163/82 96 11/22/21 12:00 11/22/21 12:00 11/22/21 12:00 11/22/21 12:00 11/22/21 12:00 Period Temp Pulse Resp BP Sys/Randolph Pulse Ox Last 24 Hr 97.4 F-99.1 F 73-88 17-20 143-192/78-95 95-97 Intake and Output 11/21/21 11/22/21 11/22/21 21:59 05:59 13:59 Intake Total 850 1850 100 Balance 850 1850 100 Weight 161 lb Intake & Output: Intake & Output 11/21/21 11/22/21 11/22/21 21:59 05:59 13:59 Intake Total 850 1850 100 Balance 850 1850 100 Weight 161 lb Intake: IV 50 1050 100 Sodium Chloride 0.9% 1,000 ml @ 1000 75 mls/hr IV .[id number] [facility]ARY Rx#: [id number] Zosyn 3.375 gm In Dextrose 5% 50 50 100 in Water 50 ml @ 100 mls/hr IV Q6H [facility]ARY Rx#:[id number] Oral 800 800 Other: # Voids 1 1 # Bowel Movements 1 Exam: AVSS. EVERARDO: Unremarkable. No interval changes, LEFT lower medial leg Dressings taken down. Resolving inflammatory / post surgical changes. Labs: Leucocytosis, Hyperglycemia trending down. Responding well to initiation of insulin treatment. Intraoperative c/s: Strep agalatiae / Strep mitis. Antibiotics and wound care plans reviewed. A/P Narrative A/P Narrative: Assessment: Satisfactory post surgical progress. Continue wound care as ordered. IV antibiotics / PICC line, insulin To continue per Hospitalist instructions, Patient will benefit from short term rehab. Plan: If discharged f/u at wound care center in ONE week. Time Spent With Patient Time: Total time spent is greater than 50% in coordination of care (as documented) at patient's floor/unit and/or counseling patient: Total time spent with greater than 50% in coordination of care (as documented) at patient's floor/unit and/or counseling patient:: 25 - 35 minutes
--- NOTE | 2021-11-22 14:38 | Internal Med Progress Note ---
SUBJECTIVE Subjective Patient information: Note initiated : 11/22/21 at 2:31 pm Service Date, if different from initiated Date: [] Patient: Joshua Woods 55 y/o M admitted on 11/18/21 for Osteomyelitis. Chief Complaint: [] Principal diagnosis: L ankle medial malleolus Osteomyelitis, confirmed by MR of Foot Interval history: renate Woods is a 55 year old M history of type 2 diabetes mellitus, presenting with 6 weeks history of swelling, pain, and skin breakdown of his left medial malleolus. There was no prior similar data. Patient had an injury by welding about 6 weeks ago to his left medial ankle. Since then, his left medial ankle wound has been getting worse in terms of erythema, skin breakdown, swelling, pain. The pain currently is graded at 4 out of 10, deep and dull, intermittent, nonradiating. He denies any systemic symptoms such as fever, chills, diaphoresis, change in appetite, general body weakness. He presented to outside hospital who sent him over to our facility for orthopedic surgery care. Vital signs significant for low-grade fever with T-max 37.8. Labs significant for leukocytosis with WBC 15.6. Blood sugar 303. Corrected serum sodium level 122. Lactic acid 0.8. C-reactive protein elevated to 19.9. MRI of the left ankle showing left medial malleolus osteomyelitis. \ 11/19- No new sx. Comfortable. Awaiting OR for wound debridement today. Discussed with post OR. He washed out the wound and cx have been sent to the lab. NWB of L foot for a few days. 11/20-no new symptoms. Comfortable. Vital signs stable. Afebrile. Blood sugars are elevated. 11/21- Blood sugars much better after initiation of insulin (lantus 15 u q noon and aspart 5 u tid with SSI). No new sx or complaints. 11/22- Inspected wound. Nice and healthy pink granulation tissue at base. Comfor table. BP running high. He attributes it to eating salmon. No new sx or complaints. Discussed with Constitutional Vitals: Vital Signs Temp Pulse Resp BP Pulse Ox 97.7 F 73 19 163/82 96 11/22/21 12:00 11/22/21 12:00 11/22/21 12:00 11/22/21 12:00 11/22/21 12:00 Period Temp Pulse Resp BP Sys/Randolph Pulse Ox Last 24 Hr 97.4 F-99.1 F 73-88 17-20 143-192/78-95 95-97 Intake and Output 11/22/21 11/22/21 11/22/21 05:59 13:59 21:59 Intake Total 1850 100 Balance 1850 100 Intake & Output: Intake & Output 11/22/21 11/22/21 11/22/21 05:59 13:59 21:59 Intake Total 1850 100 Balance 1850 100 Intake: IV 1050 100 Sodium Chloride 0.9% 1,000 ml @ 1000 75 mls/hr IV .[id number] MARY Rx#: [id number] Zosyn 3.375 gm In Dextrose 5% 50 100 in Water 50 ml @ 100 mls/hr IV Q6H MARY Rx#:[id number] Oral 800 Other: # Voids 1 # Bowel Movements 1 General appearance: average body habitus, cooperative and no acute distress Head Head exam: Present atraumatic and normocephalic Eye Eye exam: Present normal appearance Respiratory Respiratory exam: Present normal respiratory exam and CTAB; Absent accessory muscle use, decreased breath sounds or respiratory distress Cardiovascular Cardiovascular exam: Present normal rate and rhythm and RRR; Absent bradycardia, gallop, systolic murmur or tachycardia GI/Abdominal GI/Abdominal exam: Present soft Neurological Exam Neurological exam: Present alert and oriented X3; Absent altered or motor sensory deficit OBJ DATA Labs CBC & Chem 7: 11/22/21 05:22 11/22/21 05:22 Labs: Abnormal Lab Results 11/22/21 11/22/21 11/21/21 05:22 05:22 05:32 WBC 12.2 H RBC 3.51 L Hgb 9.9 L Hct 30.0 L Plt Count 651 H Neut % (Auto) Lymph % (Auto) Lymph # (Auto) [place] # (Auto) 1.10 H Absolute Neutrophils 8.44 H Sodium Chloride Glucose 137 H 147 H Calcium 8.2 L C-Reactive Protein 11/21/21 11/20/21 11/20/21 05:32 05:30 05:30 WBC 14.0 H 15.6 H RBC 3.34 L 3.73 L Hgb 9.1 L 10.3 L Hct 28.2 L 31.7 L Plt Count 603 H 622 H Neut % (Auto) 92.2 H Lymph % (Auto) 5.2 L Lymph # (Auto) 0.81 L [place] # (Auto) 1.01 H Absolute Neutrophils 9.77 H 14.37 H Sodium 128 L Chloride 92 L Glucose 299 H Calcium C-Reactive Protein 20.90 H Meds: Medications Acetaminophen (Acetaminophen 325 Mg Tablet) 650 mg PO Q6HP PRN; Protocol PRN Reason: Per Pain Protocol/Fever > 101 Last Admin: 11/18/21 20:34 Dose: 650 mg Documented by: Albuterol/Ipratropium (Ipratropium/Albuterol 3 Ml Ampul.Neb) 3 ml NEB Q4HRT PRN PRN Reason: Wheezing Dextrose (Dextrose 50% 50 Ml Vial) 0 ml IV UD PRN PRN Reason: Per Sliding Scale Diagnostic Test (Pha) (Accu-Chek 1 Each Strip) [address] [facility] Last Admin: 11/22/21 12:03 Dose: 1 each Documented by: Docusate Sodium (Docusate Sodium 100 Mg Capsule) 100 mg PO BID [facility] Last Admin: 11/22/21 08:37 Dose: Not Given Documented by: Glucose (Dextrose 31 Gm Oral.Susp) 15 gm PO PRN PRN PRN Reason: Hypoglycemia Piperacillin Sod/Tazobactam (Sod 3.375 gm/ Dextrose) 50 mls @ 100 mls/hr IV Q6H [facility]; Protocol Last Infusion: 11/22/21 12:47 Dose: Infused Documented by: Sodium Chloride (Sodium Chloride 0.9%) 1,000 mls @ 75 mls/hr IV .[id number] [facility] Last Admin: 11/22/21 09:47 Dose: Not Given Documented by: Insulin Glargine (Insulin Glargine, Human 1 Unit/0.01 Ml) 15 unit SQ DAILY [facility] Last Admin: 11/22/21 08:36 Dose: 15 units Documented by: Insulin Human Lispro (Insulin Lispro 1 Unit/0.01 Ml Unit) [address] [facility]; Protocol Last Admin: 11/22/21 12:03 Dose: Not Given Documented by: Insulin Human Lispro (Insulin Lispro 1 Unit/0.01 Ml Unit) 5 unit SQ AC [facility] Last Admin: 11/22/21 12:03 Dose: 5 unit Documented by: Morphine Sulfate (Morphine 4 Mg/Ml Vial) 4 mg IV Q4HP PRN; Protocol PRN Reason: Per Pain Protocol Ondansetron HCl (Ondansetron 4 Mg/2 Ml Vial) 4 mg IV Q6HP PRN PRN Reason: Nausea And Vomiting Oxycodone HCl (Oxycodone Hcl 5 Mg Tablet) 5 mg PO Q4HP PRN; Protocol PRN Reason: Per Pain Protocol Last Admin: 11/19/21 20:15 Dose: 5 mg Documented by: Senna (Sennosides 1 Tablet) 2 tab PO HS [facility]ARY Last Admin: 11/21/21 21:11 Dose: Not Given Documented by: Sodium Chloride (0.9 % Sodium Chloride 10 Ml Syringe) 10 ml IV Q8 [facility] Last Admin: 11/22/21 05:46 Dose: Not Given Documented by: Zolpidem Tartrate (Zolpidem 5 Mg Tablet) 5 mg PO HSP PRN PRN Reason: Insomnia A/P Narrative A/P Narrative: 1. Left medial malleolus osteomyelitis: Lactic acid 0.8 CRP 19.9 Procalcitonin 0.16 Wound culture-growing group B strep. Should be well covered by Zosyn. Continue Zosyn He underwent Excisional debridement, pulse lavage irrigation, tissue for c/s and open packing on 11/19/2021 Blood culture drawn, no growth to date. cbc w/ auto diff in the morning to trend WBC Tylenol PRN fever/mild pain MRSA screening negative Oxycodone PRN moderate pain Morphine IV PRN severe pain Wound care consult. Physical therapy-nonweightbearing on left foot. 2. T2DM: HgA1c 12.0 this admit. Insulin analy. He knew he had diabetes mellitus but was trying to control with diet modification. Lantus 15 units daily and aspart 5 units 3 times a day before meals along with sliding scale insulin. He will need to go home on insulin therapy. He explained issues with cost. I can switch him to twice daily-insulin 70/30 at the time of discharge which should be affordable. I educated him about sticking with vegetables, lean meat and avoiding carbohydrates. Hypoglycemia protocol. consistent carb diet 3. Anemia, normocytic normochromic: cbc w/ auto diff in the morning to trend H/H 4. Hyponatremia: Corrected serum sodium 122, slowly corrected to 130. NS@100cc/hr- stopped. 5. HTN- Will start ACEI (after discussing with patient). GI ppx: not currently indicated DVT ppx: SCDs Code status: Full Prognosis: guarded Disposition: rehab/ SNF for dressing changes and needs 6 weeks of IV abx, Time Spent With Patient Time: Total time spent is greater than 50% in coordination of care (as documented) at patient's floor/unit and/or counseling patient: Total time spent with greater than 50% in coordination of care (as documented) at patient's floor/unit and/or counseling patient:: 25 - 35 minutes
[2021-11-22] MEDS: SENNOSIDES 1 TABLET PO SCH (20:57)
[2021-11-23] MEDS: PIPERACILLIN SODIUM/TAZOBACTAM 3.375 GM in DEXTROSE 5% IN WATER 50 ML IV SCH ×4 (00:02→17:31)
[2021-11-23] MEDS: 0.9 % SODIUM CHLORIDE 1,000 ML IV SCH (00:32)
[2021-11-23] MEDS: 0.9 % SODIUM CHLORIDE 10 ML SYRINGE IV SCH ×4 (05:13→20:16)
[2021-11-23 06:49] LABS: Basophils # (Auto) 0.12 K/mcL (0.00-0.30); Eosinophils % (Auto) 3.4 % (0.0-7.0); Hematocrit 30.2 % (40.1-51.0); Hemoglobin 9.5 g/dL (13.7-17.5); Lymphocytes # (Auto) 2.02 K/mcL (1.50-4.80); Lymphocytes % (Auto) 17.4 % (15.5-49.0); Mean Cell Volume 85.8 fL (80.0-100.0); Mean Corpuscular HGB Conc 31.5 g/dL (31.0-36.0); Mean Platelet Volume 9.2 fL (7.4-10.4); Monocytes # (Auto) 0.86 K/mcL (0.10-0.90); Monocytes % (Auto) 7.4 % (1.0-12.0); Neutrophils % (Auto) 70.8 % (38.0-78.0); Platelet Count 620 K/mcL (140-440); RBC 3.52 M/mcL (4.63-6.08); Red Cell Distribution Width 13.2 % (11.5-14.5); WBC 11.6 K/mcL (4.5-11.0)
[2021-11-23 07:33] LABS: Blood Urea Nitrogen 12 mg/dL (6-20); Calcium 8.8 mg/dL (8.6-10.4); Carbon Dioxide 26 mmol/L (22-30); Chloride 98 mmol/L (96-108); Glomerular Filtration Rate 98; Glucose 158 mg/dL (70-105)
[2021-11-23] MEDS: INSULIN LISPRO 1 UNIT/0.01 ML UNIT SQ SCH ×7 (07:42→19:52)
[2021-11-23] MEDS: INSULIN GLARGINE, HUMAN 1 UNIT/0.01 ML SQ SCH (09:05)
[2021-11-23] MEDS: DOCUSATE SODIUM 100 MG CAPSULE PO SCH ×2 (09:05→19:35)
--- NOTE | 2021-11-23 09:49 | General Surgery Progress Note ---
SUBJECTIVE Subjective Patient information: Note initiated : 11/23/21 at 9:47 am Service Date, if different from initiated Date: [] Patient: Joshua Woods 55 y/o M admitted on 11/18/21 for Osteomyelitis. Chief Complaint: [] Principal diagnosis: L ankle medial malleolus Osteomyelitis, confirmed by MR of Foot Additional PMFSH (Level 3 Only): Patient seen along with Luis Haq RN. Wound Care Nurse. Constitutional Vitals: Vital Signs Temp Pulse Resp BP Pulse Ox 97.8 F 79 12 155/82 97 11/23/21 07:36 11/23/21 07:36 11/23/21 07:36 11/23/21 07:36 11/23/21 07:36 Period Temp Pulse Resp BP Sys/Randolph Pulse Ox Last 24 Hr 97.7 F-98.3 F 73-90 12-19 148-165/78-90 94-97 Intake and Output 11/22/21 11/23/21 11/23/21 21:59 05:59 13:59 Intake Total 1840 250 982 Balance 1840 250 982 Weight 152 lb 12.8 oz Intake & Output: Intake & Output 11/22/21 11/23/21 11/23/21 21:59 05:59 13:59 Intake Total 1840 250 982 Balance 1840 250 982 Weight 152 lb 12.8 oz Intake: IV 1050 50 982 Sodium Chloride 0.9% 1,000 ml @ 1000 932 75 mls/hr IV .[id number] MARY Rx#: [id number] Zosyn 3.375 gm In Dextrose 5% 50 50 50 in Water 50 ml @ 100 mls/hr IV Q6H MARY Rx#:[id number] Oral 790 200 Other: Meal Dinner Percent of Meal Consumed 100% Feeding Ability Independent Stool Size Small Small Stool Consistency Loose Loose # Voids 1 1 # Bowel Movements 1 1 Exam: POD #4 AVSS. No changes EVERARDO. LEFT foot and ankle dressing is CDI WB on Left foot. PICC line and IV antibiotics per Hospitalist Awaits D/C planning / placement Rehab. A/P Narrative A/P Narrative: Assessment: No interval changes / developments. Awaits D/C / transfer planning. Plan: Continue with ongoing wound care Continue Medical Management. Antibiotics / DM When D/C f/u at wound care clinic in 1 week. Time Spent With Patient Time: Total time spent is greater than 50% in coordination of care (as documented) at patient's floor/unit and/or counseling patient: Total time spent with greater than 50% in coordination of care (as documented) at patient's floor/unit and/or counseling patient:: 15 - 24 minutes Critical Care Time: No
--- NOTE | 2021-11-23 12:11 | Internal Med Progress Note ---
SUBJECTIVE Subjective Patient information: Note initiated : 11/23/21 at 12:09 pm Service Date, if different from initiated Date: [] Patient: Joshua Woods 55 y/o M admitted on 11/18/21 for Osteomyelitis. Chief Complaint: [] Principal diagnosis: L ankle medial malleolus Osteomyelitis, confirmed by MR of Foot Interval history: renate Woods is a 55 year old M history of type 2 diabetes mellitus, presenting with 6 weeks history of swelling, pain, and skin breakdown of his left medial malleolus. There was no prior similar data. Patient had an injury by welding about 6 weeks ago to his left medial ankle. Since then, his left medial ankle wound has been getting worse in terms of erythema, skin breakdown, swelling, sohan n. The pain currently is graded at 4 out of 10, deep and dull, intermittent, nonradiating. He denies any systemic symptoms such as fever, chills, diaphoresis, change in appetite, general body weakness. He presented to outside hospital who sent him over to our facility for orthopedic surgery care. Vital signs significant for low-grade fever with T-max 37.8. Labs significant for leukocytosis with WBC 15.6. Blood sugar 303. Corrected serum sodium level 122. Lactic acid 0.8. C-reactive protein elevated to 19.9. MRI of the left ankle showing left medial malleolus osteomyelitis. \ 11/19- No new sx. Comfortable. Awaiting OR for wound debridement today. Discussed with post OR. He washed out the wound and cx have been sent to the lab. NWB of L foot for a few days. 11/20-no new symptoms. Comfortable. Vital signs stable. Afebrile. Blood sugars are elevated. 11/21- Blood sugars much better after initiation of insulin (lantus 15 u q noon and aspart 5 u tid with SSI). No new sx or complaints. 11/22- Inspected wound. Nice and healthy pink granulation tissue at base. Comfo rtable. BP running high. He attributes it to eating salmon. No new sx or complaints. Discussed with 11/23- No new sx. Comfortable. Constitutional Vitals: Vital Signs Temp Pulse Resp BP Pulse Ox 97.8 F 79 12 155/82 97 11/23/21 07:36 11/23/21 07:36 11/23/21 07:36 11/23/21 07:36 11/23/21 07:36 Period Temp Pulse Resp BP Sys/Radnolph Pulse Ox Last 24 Hr 97.8 F-98.3 F 78-90 12-19 148-165/78-90 94-97 Intake and Output 11/22/21 11/23/21 11/23/21 21:59 05:59 13:59 Intake Total 1840 250 982 Balance 1840 250 982 Weight 69.309 kg Intake & Output: Intake & Output 11/22/21 11/23/21 11/23/21 21:59 05:59 13:59 Intake Total 1840 250 982 Balance 1840 250 982 Weight 69.309 kg Intake: IV 1050 50 982 Sodium Chloride 0.9% 1,000 ml @ 1000 932 75 mls/hr IV .[id number] MARY Rx#: [id number] Zosyn 3.375 gm In Dextrose 5% 50 50 50 in Water 50 ml @ 100 mls/hr IV Q6H MARY Rx#:[id number] Oral 790 200 Other: Meal Dinner Percent of Meal Consumed 100% Feeding Ability Independent Stool Size Small Small Stool Consistency Loose Loose # Voids 1 1 # Bowel Movements 1 1 General appearance: average body habitus, cooperative and no acute distress Head Head exam: Present atraumatic and normocephalic Eye Eye exam: Present normal appearance Respiratory Respiratory exam: Present normal respiratory exam and CTAB; Absent accessory muscle use, decreased breath sounds or respiratory distress Cardiovascular Cardiovascular exam: Present normal rate and rhythm and RRR; Absent bradycardia, gallop, systolic murmur or tachycardia GI/Abdominal GI/Abdominal exam: Present soft Neurological Exam Neurological exam: Present alert and oriented X3; Absent altered or motor sensory deficit OBJ DATA Labs CBC & Chem 7: 11/23/21 05:35 11/23/21 05:35 Labs: Abnormal Lab Results 11/23/21 11/23/21 11/22/21 05:35 05:35 05:22 WBC 11.6 H RBC 3.52 L Hgb 9.5 L Hct 30.2 L Plt Count 620 H [place] # (Auto) Absolute Neutrophils 8.21 H Glucose 158 H 137 H Calcium 11/22/21 11/21/21 11/21/21 05:22 05:32 05:32 WBC 12.2 H 14.0 H RBC 3.51 L 3.34 L Hgb 9.9 L 9.1 L Hct 30.0 L 28.2 L Plt Count 651 H 603 H [place] # (Auto) 1.10 H 1.01 H Absolute Neutrophils 8.44 H 9.77 H Glucose 147 H Calcium 8.2 L Meds: Medications Acetaminophen (Acetaminophen 325 Mg Tablet) 650 mg PO Q6HP PRN; Protocol PRN Reason: Per Pain Protocol/Fever > 101 Last Admin: 11/18/21 20:34 Dose: 650 mg Documented by: Albuterol/Ipratropium (Ipratropium/Albuterol 3 Ml Ampul.Neb) 3 ml NEB Q4HRT PRN PRN Reason: Wheezing Dextrose (Dextrose 50% 50 Ml Vial) 0 ml IV UD PRN PRN Reason: Per Sliding Scale Diagnostic Test (Pha) (Accu-Chek 1 Each Strip) 1 each FS [facility] Last Admin: 11/23/21 11:30 Dose: 1 each Documented by: Docusate Sodium (Docusate Sodium 100 Mg Capsule) 100 mg PO BID [facility] Last Admin: 11/23/21 09:05 Dose: Not Given Documented by: Glucose (Dextrose 31 Gm Oral.Susp) 15 gm PO PRN PRN PRN Reason: Hypoglycemia Piperacillin Sod/Tazobactam (Sod 3.375 gm/ Dextrose) 50 mls @ 100 mls/hr IV Q6H [facility]; Protocol Last Admin: 11/23/21 11:37 Dose: 100 mls/hr Documented by: Insulin Glargine (Insulin Glargine, Human 1 Unit/0.01 Ml) 15 unit SQ DAILY [facility] Last Admin: 11/23/21 09:05 Dose: 15 units Documented by: Insulin Human Lispro (Insulin Lispro 1 Unit/0.01 Ml Unit) 0 unit SQ [facility]; Protocol Last Admin: 11/23/21 11:31 Dose: Not Given Documented by: Insulin Human Lispro (Insulin Lispro 1 Unit/0.01 Ml Unit) 5 unit SQ AC [facility] Last Admin: 11/23/21 11:31 Dose: 5 unit Documented by: Morphine Sulfate (Morphine 4 Mg/Ml Vial) 4 mg IV Q4HP PRN; Protocol PRN Reason: Per Pain Protocol Ondansetron HCl (Ondansetron 4 Mg/2 Ml Vial) 4 mg IV Q6HP PRN PRN Reason: Nausea And Vomiting Oxycodone HCl (Oxycodone Hcl 5 Mg Tablet) 5 mg PO Q4HP PRN; Protocol PRN Reason: Per Pain Protocol Last Admin: 11/19/21 20:15 Dose: 5 mg Documented by: Senna (Sennosides 1 Tablet) 2 tab PO HS [facility] Last Admin: 11/22/21 20:57 Dose: Not Given Documented by: Sodium Chloride (0.9 % Sodium Chloride 10 Ml Syringe) 10 ml IV Q8 [facility] Last Admin: 11/23/21 05:13 Dose: Not Given Documented by: Zolpidem Tartrate (Zolpidem 5 Mg Tablet) 5 mg PO HSP PRN PRN Reason: Insomnia A/P Narrative A/P Narrative: 1. Left medial malleolus osteomyelitis: Lactic acid 0.8 CRP 19.9 Procalcitonin 0.16 Wound culture-growing group B strep. Should be well covered by Zosyn. Continue Zosyn day 5 He underwent Excisional debridement, pulse lavage irrigation, tissue for c/s and open packing on 11/19/2021 Blood culture drawn, no growth to date. cbc w/ auto diff in the morning to trend WBC Tylenol PRN fever/mild pain MRSA screening negative Oxycodone PRN moderate pain Morphine IV PRN severe pain Wound care consult. Physical therapy-nonweightbearing on left foot. 2. T2DM: HgA1c 12.0 this admit. Insulin analy. He knew he had diabetes mellitus but was trying to control with diet modification. Lantus 15 units daily and aspart 5 units 3 times a day before meals along with sliding scale insulin. He will need to go home on insulin therapy. He explained issues with cost. I can switch him to twice daily-insulin 70/30 at the time of discharge which should be affordable. I educated him about sticking with vegetables, lean meat and avoiding carbohydrates. Hypoglycemia protocol. consistent carb diet 3. Anemia, normocytic normochromic: cbc w/ auto diff in the morning to trend H/H 4. Hyponatremia: Corrected serum sodium 122, slowly corrected to 130. NS@100cc/hr- stopped. 5. HTN- Will start ACEI (after discussing with patient). GI ppx: not currently indicated DVT ppx: SCDs Code status: Full Prognosis: guarded Disposition: rehab/ SNF for dressing changes and needs 6 weeks of IV abx, Time Spent With Patient Time: Total time spent is greater than 50% in coordination of care (as documented) at patient's floor/unit and/or counseling patient: Total time spent with greater than 50% in coordination of care (as documented) at patient's floor/unit and/or counseling patient:: 25 - 35 minutes
[2021-11-23] MEDS ORDERED: 0.9 % SODIUM CHLORIDE 10 ML SYRINGE IV PRN (15:53)
[2021-11-23] MEDS: SENNOSIDES 1 TABLET PO SCH (19:35)
[2021-11-24] MEDS: PIPERACILLIN SODIUM/TAZOBACTAM 3.375 GM in DEXTROSE 5% IN WATER 50 ML IV SCH ×3 (00:05→11:13)
[2021-11-24] MEDS: 0.9 % SODIUM CHLORIDE 10 ML SYRINGE IV SCH ×2 (05:21→08:51)
[2021-11-24 06:36] LABS: Basophils # (Auto) 0.14 K/mcL (0.00-0.30); Basophils % (Auto) 1.3 % (0.0-2.0); Eosinophils # (Auto) 0.44 K/mcL (0.00-0.70); Eosinophils % (Auto) 4.2 % (0.0-7.0); Hematocrit 31.6 % (40.1-51.0); Lymphocytes # (Auto) 2.22 K/mcL (1.50-4.80); Lymphocytes % (Auto) 21.2 % (15.5-49.0); Mean Cell Volume 86.1 fL (80.0-100.0); Mean Corpuscular HGB Conc 31.6 g/dL (31.0-36.0); Mean Platelet Volume 8.9 fL (7.4-10.4); Monocytes # (Auto) 0.76 K/mcL (0.10-0.90); Monocytes % (Auto) 7.3 % (1.0-12.0); Platelet Count 645 K/mcL (140-440); RBC 3.67 M/mcL (4.63-6.08); Red Cell Distribution Width 13.2 % (11.5-14.5); WBC 10.5 K/mcL (4.5-11.0)
[2021-11-24 06:47] LABS: Blood Urea Nitrogen 15 mg/dL (6-20); Carbon Dioxide 28 mmol/L (22-30); Chloride 96 mmol/L (96-108); Glomerular Filtration Rate 94; Glucose 149 mg/dL (70-105)
[2021-11-24] MEDS: INSULIN LISPRO 1 UNIT/0.01 ML UNIT SQ SCH ×4 (08:50→11:29)
[2021-11-24] MEDS: INSULIN GLARGINE, HUMAN 1 UNIT/0.01 ML SQ SCH (08:51)
[2021-11-24] MEDS ORDERED: LISINOPRIL 20 MG TABLET PO SCH (09:15)
[2021-11-24] MEDS: DOCUSATE SODIUM 100 MG CAPSULE PO SCH (09:22)
--- NOTE | 2021-11-24 09:52 | XRay Report ---
CLINICAL INFORMATION: PICC line placement COMPARISON: None. TECHNIQUE: PA and Lateral views FINDINGS: The heart size, mediastinum and pulmonary vessels are unremarkable. PICC line tip overlies the mitral valve plane. The lungs are clear. There are no effusions. The bones and soft tissues are within normal limits. IMPRESSION: No cardiopulmonary disease. PICC line tip overlying the mitral valve plane. Nurses were instructed to withdraw the line 5 cm Interpreted and Authenticated by: Balta Pinzon 11/24/21
--- NOTE | 2021-11-24 11:01 | Discharge Summary ---
Discharge Provider Provider Patient information: Note initiated : 11/24/21 at 10:53 am Service Date, if different from initiated Date: [] Patient: Joshua Woods 55 y/o M admitted on 11/18/21 for Osteomyelitis. Chief Complaint: [] Date of admission: 11/18/21 10:36 Discharge date: 11/24/21 Primary care physician: Ian Lau Admitting clinician: Hermelindo Hill Attending physician on admission: Sadnee Hager Consults: 11/18/21 13:14 Consult to Physician [CONS] Routine Comment: Consulting Provider: Rohan Tran Reason For Exam: Physician to Consult Attending physician on discharge: Sandee Hager Discharging clinician: Sandee Hager Discharge Meds Discharge Medications Home Medications acetaminophen 325 mg tablet (Tylenol) 650 mg PO Q6HP PRN 30 Days tab 11/24/21 [Rx Last Taken Unknown] ceftriaxone 2 gram solution for injection 2 g IM QDAY #37 ea 11/24/21 [Rx Last Taken Unknown] insulin glargine 100 unit/mL subcutaneous solution (Lantus U-100 Insulin) 15 unit (0.15 mL) SQ DAILY 30 Days #1 bottle 11/24/21 [Rx Last Taken Unknown] insulin lispro 100 unit/mL subcutaneous solution (Humalog U-100 Insulin) 5 unit (0.05 mL) SQ AC 30 Days #4.5 ml 11/24/21 [Rx Last Taken Unknown] lisinopril 20 mg tablet 20 mg PO DAILY 60 Days #60 tab 11/24/21 [Rx Last Taken Unknown] metronidazole 500 mg tablet 500 mg PO Q12H 14 Days #28 tab 11/24/21 [Rx Last Taken Unknown] COURSE Hospital Course Hospital course: Mr. Woods is a 55 year old M history of type 2 diabetes mellitus, presenting with 6 weeks history of swelling, pain, and skin breakdown of his left medial malleolus. There was no prior similar data. Patient had an injury by welding about 6 weeks ago to his left medial ankle. Since then, his left medial ankle wound has been getting worse in terms of erythema, skin breakdown, swelling, pain. The pain currently is graded at 4 out of 10, deep and dull, intermittent, nonradiating. He denies any systemic symptoms such as fever, chills, diaphoresis, change in appetite, general body weakness. He presented to outside hospital who sent him over to our facility for orthopedic surgery care. Vital signs significant for low-grade fever with T-max 37.8. Labs significant for leukocytosis with WBC 15.6. Blood sugar 303. Corrected serum sodium level 122. Lactic acid 0.8. C-reactive protein elevated to 19.9. MRI of the left ankle showing left medial malleolus osteomyelitis. \\ 11/19- No new sx. Comfortable. Awaiting OR for wound debridement today. Discussed with post OR. He washed out the wound and cx have been sent to the lab. NWB of L foot for a few days. 11/20-no new symptoms. Comfortable. Vital signs stable. Afebrile. Blood sugars are elevated. 11/21- Blood sugars much better after initiation of insulin (lantus 15 u q noon and aspart 5 u tid with SSI). No new sx or complaints. 11/22- Inspected wound. Nice and healthy pink granulation tissue at base. Comfortable. BP running high. He attributes it to eating salmon. No new sx or complaints. Discussed with 11/23- No new sx. Comfortable 11/24-considering his blood pressure has persistently been around 160s 170s systolic, discussed about the need for blood pressure control. He was reluctant to start hypertension medicatio "I'm not a big fan of pharmaceutical industry " Explained the benefits and risks of lisinopril. He agrees to be on lisinopril. Started at 20 mg daily. His wound seems to be healing well with healthy pink granulation tissue and no pus Discharge diagnosis: Left ankle osteomyelitis Pertinent studies/significant findings: 1. Left medial malleolus osteomyelitis: Lactic acid 0.8,CRP 19.9,Procalcitonin 0.16 on admission. Wound culture-growing group B strep and a few anaerobes. He underwent Excisional debridement, pulse lavage irrigation, tissue for c/s and open packing on 11/19/2021 While he was inpatient for 6 days, he was treated with IV Zosyn. On discharge, transitioned to IV ceftriaxone and p.o. Flagyl. Total duration 6 weeks, if tolerated to 1 week while here, for 5 more weeks (end of treatment October 30, 2021) PICC line placed. Will need weekly CBC and BMP drawn and sent to his PCP. We will transfer him to a facility for IV antibiotics, wound care and diabetes control. Follow-up outpatient with Dr. Tran at wound care clinic 2. T2DM: HgA1c 12.0 this admit. Insulin analy. He knew he had diabetes mellitus but was trying to control with diet modification. Lantus 15 units daily and aspart 5 units 3 times a day before meals along with sliding scale insulin. Continue this regimen at the facility as well. At the time of his discharge it is reasonable to transition him to insulin 7030- 20 units in the morning and 10 units in the p.m. 3. HTN- Started on lisinopril 20 mg daily. Discussed risks and benefits. His blood pressure has always been 160s to 180s while inpatient. May need dose escalation as outpatient. Time Spent with Patient Time attestation: Total time spent providing and/or coordinating discharge services: Time spent: Greater than 30 minutes EXAM Constitutional Vitals: Temp Pulse Resp BP Pulse Ox 97.4 F 63 14 163/73 98 11/24/21 08:00 11/24/21 09:15 11/24/21 08:00 11/24/21 09:15 11/24/21 08:00 General appearance: average body habitus, cooperative and no acute distress Head Head exam: Present atraumatic and normocephalic Eye Eye exam: Present normal appearance ENT ENT exam: Present mucous membranes moist Respiratory Respiratory exam: Present normal respiratory exam and CTAB; Absent accessory muscle use, rales, respiratory distress, stridor or wheezes Cardiovascular Cardiovascular exam: Present normal rate and rhythm and RRR; Absent bradycardia, diastolic murmur, gallop, irregular rhythm or rubs GI/Abdominal GI/Abdominal exam: Present normal bowel sounds and soft; Absent distended, guard ing or rebound Expanded Lower Extremity Exam Hip exam: Present normal inspection; Absent swelling Back Exam Back exam: Present normal inspection; Absent CVA tenderness (L), CVA tenderness (R), paraspinal tenderness or vertebral tenderness Neurological Exam Neurological exam: Present alert and oriented X3; Absent abnormal gait or motor sensory deficit Discharge Data Data Completed and Pending Labs on day of discharge: Labs from last 24 hours 11/24/21 11/24/21 05:28 05:28 WBC 10.5 RBC 3.67 L Hgb 10.0 L Hct 31.6 L MCV 86.1 MCH 27.2 MCHC 31.6 RDW 13.2 Plt Count 645 H MPV 8.9 Neut % (Auto) 66.0 Lymph % (Auto) 21.2 [place] % (Auto) 7.3 Eos % (Auto) 4.2 Baso % (Auto) 1.3 Lymph # (Auto) 2.22 [place] # (Auto) 0.76 Eos # (Auto) 0.44 Baso # (Auto) 0.14 Absolute Neutrophils 6.89 Sodium 132 L Potassium 4.0 Chloride 96 Carbon Dioxide 28 Anion Gap 8.0 BUN 15 Creatinine 0.9 GFR Calculation 94 Glucose 149 H Calcium 9.0 Preliminary micro results at discharge 11/19/21 15:06 Gram Stain - Preliminary Ankle - Left Anaerobic Culture - Preliminary Anaerobic gram positive rods Anaerobic gram neg bacillus Discharge Plan Patient/Caregiver Discharge Instructions Activity: as per physical therapy Diet: Consistent Carbohydrate Prescriptions: New acetaminophen [Tylenol] 325 mg Tablet 650 mg PO Q6HP PRN (Reason: Per Pain Protocol/Fever > 101) 30 Days 0RF Lantus U-100 Insulin 100 unit/mL Solution 15 unit SQ DAILY 30 Days Qty: 1 1RF lisinopril 20 mg Tablet 20 mg PO DAILY 60 Days Qty: 60 0RF insulin lispro [Humalog U-100 Insulin] 100 unit/mL Solution 5 unit SQ AC 30 Days Qty: 4.5 1RF ceftriaxone 2 gram recon soln 2 g IM QDAY Qty: 37 0RF metronidazole 500 mg tablet 500 mg PO Q12H 14 Days Qty: 28 0RF Other Ambulatory Orders: Wound Care Instructions (CONT) Location: None Selected Ordered By: Rohan Tran OT Discharge Order (Routine) Location: None Selected Ordered By: Sandee Hager Physical Therapy at Discharge - General (Routine) Location: None Selected Ordered By: Sandee Hager Follow Up Plan Follow up with: Rohan Tran MD [Physician] - (Follow up in [facility] for DFU in 1 week.) Patient Disposition: Xfer SNF Rehab Potential: Good I certify that the patient requires SNF services: Yes (Pt. to d/c to [facility] in [place]) Overall status at discharge: patient is progressing back to baseline Discharge Orders: Discharge Order (Routine); Ordered 11/24/21 Ordered By: Sandee Hager
== END 2021-11-24 14:20 | DRG 934 ==
LOC: MEDSUR 10:36 → SUATTDRO 10:36
PROVIDERS: ADMIT Internal Medicine; ATTEND Orthopaedic Surgery Orthopaedic Surgery of the Spine